=== PATIENT | male | born 1970 | race Hispanic/Latino ===

== ENCOUNTER 2020-07-27 11:40 | Emergency (ER) | payer BC ==
[2020-07-27 12:09] VITALS: BP 130/85
[2020-07-27] MEDS ORDERED: DIPHtheria,PERTUSSIS(ACELL),TETANUS VACCINE/PF 0.5 ML VIAL IM ONE (12:48)
--- NOTE | 2020-07-27 12:51 | Emergency Department Report ---
ED Animal Bite HPI - General Chief Complaint: Animal Bite Stated Complaint: DOG BITE Time Seen by Provider: 07/27/20 12:46 Source: patient Mode of arrival: Ambulatory Limitations: No Limitations - History of Present Illness Initial Comments: 49-year-old male presents to the emergency room for right wrist animal bite that happened last night. Patient states that it is his animal and is up-to-date on all vaccines. Patient reports that this was unprovoked bite. Patient states that he cleaned the wound off and placed a pressure dressing. Patient has no known drug allergies. Does not take any medications on a daily basis. Denies any past medical history. MD Complaint: animal bite -: Last night Right: Hand (wrist) Animal: dog Animal Control Notified: No Description: household pet, immunizations UTD Mechanism: bite Context: unprovoked Associated Symptoms: erythema, bleeding - Related Data Patient Tetanus UTD: No Previous Rx's Medication Instructions Recorded Last Taken Type Amoxicillin/K Clav Tab [Augmentin 1 tab PO Q12HR 10 Days #20 tab 07/27/20 Unknown Rx 875 mg] Ibuprofen [Motrin 600 MG tab] 600 mg PO Q8H PRN #30 tablet 07/27/20 Unknown Rx Allergies Allergy/AdvReac Type Severity Reaction Status Date / Time No Known Allergies Allergy Unverified 07/27/20 11:42 ED Review of Systems ROS: Stated complaint: DOG BITE Other details as noted in HPI Comment: All other systems reviewed and negative ED Past Medical Hx - Past Medical History Previous Medical History?: No - Surgical History Past Surgical History?: No - Social History Smoking Status: Current Every Day Smoker Substance Use Type: Alcohol, Marijuana - Medications Home Medications: Home Medications Medication Instructions Recorded Confirmed Last Taken Type Amoxicillin/K Clav Tab [Augmentin 1 tab PO Q12HR 10 Days #20 tab 07/27/20 Unknown Rx 875 mg] Ibuprofen [Motrin 600 MG tab] 600 mg PO Q8H PRN #30 tablet 07/27/20 Unknown Rx ED Physical Exam - General Limitations: No Limitations General appearance: alert, in no apparent distress - Head Head exam: Present: atraumatic, normocephalic - Eye Eye exam: Present: normal appearance - ENT ENT exam: Present: mucous membranes moist - Respiratory Respiratory exam: Absent: accessory muscle use - Back Exam Back exam: Present: normal inspection, full ROM - Neurological Exam Neurological exam: Present: alert, oriented X3, normal gait - Psychiatric Psychiatric exam: Present: normal affect, normal mood - Expanded Skin Exam Expanded Type of lesion: Present: bite/sting Distribution of rash: RUE Description of rash: Present: tenderness, erythematous, other (Treatments laceration) ED Course Vital Signs 07/27/20 12:06 Temperature 98.1 F Pulse Rate 90 Respiratory 18 Rate Blood Pressure 130/85 O2 Sat by Pulse 96 Oximetry Critical care attestation.: If time is entered above; I have spent that time in minutes in the direct care of this critically ill patient, excluding procedure time. ED Disposition Clinical Impression: Animal bite of forearm Disposition: DC-01 TO HOME OR SELFCARE Is pt being admited?: No Does the pt Need Aspirin: No Condition: Stable Instructions: Animal Bite, Adult, [id number] Additional Instructions: Complete antibiotics as prescribed keep wound clean and dry take ibuprofen as needed for pain. Follow-up with a primary care provider if he gets worse. Prescriptions: Amoxicillin/K Clav Tab [Augmentin 875 mg] 1 tab PO Q12HR 10 Days #20 tab Ibuprofen [Motrin 600 MG tab] 600 mg PO Q8H PRN #30 tablet PRN Reason: Pain Referrals: [facility] [Provider Group] - 3-5 Days ED Medical Decision Making - Medical Decision Making 49-year-old male presents to the emergency room for right wrist animal bite that happened last night. Patient states that it is his animal and is up-to-date on all vaccines. Patient reports that this was unprovoked bite. Patient states that he cleaned the wound off and placed a pressure dressing. Patient has no known drug allergies. Does not take any medications on a daily basis. Denies any past medical history. Tetanus given. Discharged on Augmentin ibuprofen
== END 2020-07-27 13:20 | disposition home or self-care (01) ==
LOC: ED 11:40
DX: S51.851A Open bite of right forearm, initial encounter (principal); F17.200 Nicotine dependence, unspecified, uncomplicated; F12.10 Cannabis abuse, uncomplicated; W54.0XXA Bitten by dog, initial encounter; Y93.89 Activity, other specified; Y92.89 Other specified places as the place of occurrence of the external cause; Y99.8 Other external cause status
CPT/HCPCS: 90471; 90715; 99282

== ENCOUNTER 2021-01-21 20:52 | Emergency (ER) | payer BC ==
[2021-01-21 21:49] VITALS: BP 146/82
--- NOTE | 2021-01-21 22:22 | XRay Report ---
RIGHT HAND 3 VIEW(S) INDICATION / CLINICAL INFORMATION: Pain and swelling S/P fall COMPARISON: None available. FINDINGS: BONES / JOINT(S): Acute transverse fracture through the distal aspect of the little finger metacarpal diaphysis with approximately 103 degrees of volar angulation. No dislocation. No significant arthrit is. SOFT TISSUES: Moderate edema adjacent to the low finger metacarpal. ADDITIONAL FINDINGS: None. Signer Name: Amor Xiong MD Signed: 01/21/2021 10:18 PM Workstation Name: [id number]
[2021-01-22] MEDS ORDERED: oxyCODONE /ACETAMINOPHEN 5-325MG TAB PO STA (00:09)
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
== END 2021-01-22 00:51 | disposition home or self-care (01) ==
LOC: ED 20:52
DX: S62.396A Other fracture of fifth metacarpal bone, right hand, initial encounter for closed fracture (principal); F17.200 Nicotine dependence, unspecified, uncomplicated; F12.10 Cannabis abuse, uncomplicated; Z79.1 Long term (current) use of non-steroidal anti-inflammatories (NSAID); Z79.899 Other long term (current) drug therapy; W01.0XXA Fall on same level from slipping, tripping and stumbling without subsequent striking against object, initial encounter; Y93.89 Activity, other specified; Y92.009 Unspecified place in unspecified non-institutional (private) residence as the place of occurrence of the external cause; Y99.8 Other external cause status

== ENCOUNTER 2021-11-06 14:16 | Emergency (ER) | payer BC ==
[2021-11-06] MEDS ORDERED: oxyCODONE /ACETAMINOPHEN 5-325MG TAB PO ONE (15:09)
[2021-11-06] MEDS ORDERED: IBUPROFEN 800 MG TAB PO ONE (15:09)
--- NOTE | 2021-11-06 16:01 | XRay Report ---
PA CHEST AND LEFT RIB DETAIL 4 VIEWS INDICATION / CLINICAL INFORMATION: Left chest wall pain. COMPARISON: None available. FINDINGS: The heart size and pulmonary vasculature are normal. The lungs are hyperinflated with bullous changes bilaterally, most prominent in the right lower lung. There are surgical changes in the right hilar r egion. Mild chronic interstitial lung disease is present. I see no evidence of pleural effusion or pn eumothorax. I do not identify a rib fracture or other significant osseous abnormality. Signer Name: Amor Price MD Signed: 11/06/2021 3:56 PM Workstation Name: [id number]
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
[2021-11-06 16:22] VITALS: BP 155/87
== END 2021-11-06 16:22 | disposition home or self-care (01) ==
LOC: ED 14:16
DX: S20.212A Contusion of left front wall of thorax, initial encounter (principal); J44.9 Chronic obstructive pulmonary disease, unspecified; F17.200 Nicotine dependence, unspecified, uncomplicated; F12.90 Cannabis use, unspecified, uncomplicated; Z72.89 Other problems related to lifestyle; Z79.899 Other long term (current) drug therapy; X58.XXXA Exposure to other specified factors, initial encounter; Y93.89 Activity, other specified; Y92.89 Other specified places as the place of occurrence of the external cause; Y99.8 Other external cause status
CPT/HCPCS: 93005; 93010; 99283